=== PATIENT | male | born 1955 | race Caucasian/White ===

== ENCOUNTER → 2018-02-20 | Day surgery (SDC) | payer OTHER ==
[~2018-02-20] VITALS: Ht 175.3 cm; Wt 100.0 kg
[~2018-02-20] MED LIST: AMLO5TAB2 PO; ASPI81TA23 PO; ATOR40TA16 PO; BENA20TA PO; CHLORHEXIDINE GLUCONATE 2 % 1 PACK (2 CLOTHS) TOPICAL PRN; FISH1000 PO; GLUC15009 PO; HYALURONIDASE/LIDOCAINE/BUPIVACAINE 5 ML SYR RIGHT EYE ONE; LACTATED RINGER'S 1000 ML IV PRN; LIDOCAINE HCL 1% PF 30 ML VIAL ONE; MULT-65 PO; POVIDONE IODINE 5% (ANTISEPSIS KIT) 4 APPLICATIONS EACH NARE PRN; PROPARACAINE HCL 0.5% OPHT SOLN 15 ML BTL RIGHT EYE ONE; PROPOFOL 200 MG/20 ML AMP ONE; SODIUM CHLORID 0.9% 500 ML IV PRN; TOBRAMYCIN/DEXAMETHASONE OPTH OINT 3.5 GM TUBE ONE; VITA20003 PO
[2018-02-20] MEDS: TROPICAMIDE 1% OPHT SOLN 15 ML BTL RIGHT EYE SCH ×4 (06:50→07:05)
[2018-02-20] MEDS: FLURBIPROFEN 0.03% OPHT SOLN 2.5 ML BTL RIGHT EYE SCH ×4 (06:50→07:05)
[2018-02-20] MEDS: PHENYLEPHRINE HCL 10% OPTH SOLN 5 ML BTL RIGHT EYE SCH ×4 (06:50→07:05)
[2018-02-20] MEDS: CYCLOPENTOLATE HCL 1% OPHT SOLN 2 ML BTL RIGHT EYE SCH ×4 (06:50→07:05)
[2018-02-20 07:10] VITALS: PULSE 54
[2018-02-20 07:22] VITALS: PULSE 61
[2018-02-20 08:45] VITALS: BP 144/68; PULSE 55; RESP 16; TEMP 98.2; O2SAT 99
--- NOTE | 2018-02-20 10:23 | MP ---
cc: Christopher Paula MD DATE OF OPERATION: 02/20/2018 [facility] NUMBER: [id number] PREOPERATIVE DIAGNOSIS: Visually significant cataract right eye. POSTOPERATIVE DIAGNOSIS: Visually significant cataract right eye. OPERATION: Phacoemulsification with posterior chamber lens implantation, right eye. SURGEON: Christopher Paula MD ANESTHESIA: Retrobulbar with MAC. COMPLICATIONS: None. PROCEDURE: After informed consent was obtained, the patient was brought into the operative suite and placed on appropriate monitors by the Anesthesia Service. The patient had received a prior retrobulbar injection of local anesthetic by the Anesthesia Service in the holding area. The patient's operative eye was then prepped and draped in the usual sterile fashion. A wire lid speculum was placed. A paracentesis incision was made in the peripheral cornea with a 1 mm carin keratome. The anterior chamber was filled with viscoelastic. The anterior chamber was then entered through a stepped, clear corneal incision using a sharp 3 mm carin keratome. A circular tear capsulorrhexis was then made with a bent needle cystitome. Following hydrodissection of the lens nucleus with balanced saline, phaco-emulsification of the nucleus was performed using a modified chopping technique. The remaining cortex was removed with irrigation/aspiration. The prior two procedures were both performed using the handpieces of the [employer] phaco unit. The capsular bag was then filled with viscoelastic. The intraocular lens was then injected into the capsular bag and positioned. The type of intraocular lens and its power can be found elsewhere in this chart. The remaining viscoelastic was then removed from the anterior chamber with the IA handpiece. The anterior chamber was reformed with balanced saline. The wound was then closed securely with stromal hydration. It was found to be watertight to an intraocular pressure of at least 30 mmHg by palpation. A small amount of balanced salt solution was then removed through the paracentesis site and the intraocular pressure at the end of the case was approximately 20 by palpation. All drapes were then removed. TobraDex ointment was then placed in the eye, which was closed beneath a semi-pressure patch dressing. The patient tolerated this procedure well and left the operating room awake and alert. The patient is to follow-up in my office in the morning. MD MEDARDO Iqbal/ARSH , 10:10 AM , 10:21 AM
== END | disposition home or self-care (01) ==
LOC: PHSDC 06:09 → EDSTATUS 08:30
PROVIDERS: ATTEND Optometrist Occupational Vision
DX: H25.811 Combined forms of age-related cataract, right eye (principal)
CPT/HCPCS: 00142; 66985; J7040; V2632; J7120